=== PATIENT | female | born 1975 | race Caucasian/White ===

== ENCOUNTER → 2018-01-31 | Outpatient (CLI) | payer BC ==
[2018-01-31 10:55] LABS: EOS # 0.4 (0.04-0.40); EOS % 6.3 % (1.0-5.0); HEMATOCRIT 40.1 % (37.0-47.0); HEMOGLOBIN 13.3 g/dL (12.5-16.0); LYMPH# 2.2 (1.50-4.00); MEAN CELL VOLUME 88 fl (78-100); MEAN CORPUSCULAR HEMOGLOBIN 29 pg (27-31); MEAN CORPUSCULAR HGB CONC 33 g/dL (33-37); MEAN PLATELET VOLUME 9.6 fl (7.4-10.4); MONO # 0.5 (0.20-0.80); NEU # 2.7 (1.40-6.50); PLATELET COUNT 280 K/mm3 (130-400); RED BLOOD COUNT 4.54 M/mm3 (4.10-5.30); RED CELL DISTRIBUTION WIDTH 13.4 % (11.5-14.5); WHITE BLOOD COUNT 5.9 K/mm3 (4.8-10.8)
[2018-01-31 11:06] LABS: ALBUMIN 4.2 g/dL (3.5-5.0); BUN/CREATININE RATIO 12.4 (6.0-26.0); CALCIUM 8.9 mg/dL (8.4-10.2); POTASSIUM 3.5 mmol/L (3.6-5.0); TOTAL BILIRUBIN 0.4 mg/dL (0.2-1.3); TOTAL PROTEIN 7.1 g/dL (6.3-8.2)
== END ==
LOC: LAB 10:43
PROVIDERS: Internal Medicine
DX: Z00.00 Encounter for general adult medical examination without abnormal findings (principal); Z88.0 Allergy status to penicillin; Z88.1 Allergy status to other antibiotic agents; Z91.041 Radiographic dye allergy status

== ENCOUNTER → 2020-08-19 | Outpatient (CLI) | payer BC | LOC: MAMMO 16:00 | DX: Z12.31 Encounter for screening mammogram for malignant neoplasm of breast (principal); Z98.82 Breast implant status ==

== ENCOUNTER → 2023-01-04 | Outpatient (CLI) | payer BC | LOC: MAMMO 08:19 | DX: Z12.31 Encounter for screening mammogram for malignant neoplasm of breast (principal) ==